=== PATIENT | male | born 1990 | race Two or more races ===

== ENCOUNTER → 2019-03-17 | Outpatient (CLI) | payer OTHER ==
[~2019-03-17] MED LIST: IOHEXOL 300 MG/ML 75 ML VIAL. IV ONE
--- NOTE | 2019-03-17 14:58 | RAD ---
Examination: CT HEAD WO/W CONTRAST History: Soft tissue lump on the posterior aspect of the head. Comparison/Correlation: None Findings: Axial images of the head were obtained prior to and following IV contrast. Ventricles are normal size. No intracranial hemorrhage, midline shift, or mass effect. No suspicious intracranial enhancement. At the posterior lower scalp just to the right of the midline, there is a slightly high density structure with Hounsfield units of 74 within the subcutaneous fat measuring up to 1.4 cm diameter which is irregularly marginated. No enhancement. This extends to the undersurface of the skin. Bony structures are unremarkable. Impression: Irregular density structure deep to the scalp at the posterior midline. Correlate for possibility of a sebaceous cyst. No definite enhancement. Correlate clinically in determining interval follow-up. PQRS Compliance Statement: One or more of the following individualized dose reduction techniques were utilized for this examination: 1. Automated exposure control 2. Adjustment of the mA and/or kV according to patient size 3. Use of iterative reconstruction technique Electronically signed by: Santy Ferrera MD (03/17/2019 2:55 PM) [facility]
== END | disposition home or self-care (01) ==
LOC: CT 08:34 → EEVIPCON 08:34
PROVIDERS: ATTEND Preventive Medicine Occupational Medicine
DX: R22.0 Localized swelling, mass and lump, head (principal)
CPT/HCPCS: 70470; Q9967